=== PATIENT | male | born 1975 | race Caucasian/White ===

== ENCOUNTER 2016-11-01 13:07 | Emergency (ER) | payer MEDICAID, OTHER ==
--- NOTE | 2016-11-01 13:35 | ERNOTE ---
Date of Service: 11/01/16 Time Seen by Provider: 11/01/16 13:23 Stated Complaint: URI Presenting Symptoms:: cough, runny nose, fever Source: patient Exam Limitations: no limitations Allergies/Adverse Reactions: Allergies morphine Allergy (Intermediate, Verified 11/01/16 13:21) Hives prochlorperazine edisylate [From Compazine] Allergy (Intermediate, Verified 09/13 13:21) Hives prochlorperazine maleate [From Compazine] Allergy (Intermediate, Verified 13:21) Hives Home Medications: HOME MEDICATIONS Alprazolam [Xanax] 0.5 mg PO PRN PRN 08/16/13 [Last Taken 11/08/13 23:00] Tadalafil [Cialis] 5 mg PO PRN PRN 08/16/13 [Last Taken Unknown] Doxycycline Monohydrate 100 mg PO BID #20 tablet 11/01/16 [Last Taken Unknown] HYDROcodone/ACETAMINOPHEN [Brixey 5-325] 1 - 2 tab PO Q6H PRN 11/01/16 [Last Taken Unknown] traMADol HCL [Ultram] 100 mg PO QID 11/01/16 [Last Taken Unknown] - History of Present Ilness Narrative: Pt. comes in with four day history of sinus congestion, frontal headache, post nasal gtt, ear pain and fever. Pt. denies any SOB, CP, NVD, recent illness or injury or sick contacts. Pt. does state that he has a cough at night when he lays down. Pt. also states that he has taken advil which alleviates the pain and fever but does not help with the sinus congestion. Review of Systems - Review of Systems Constitutional: Present: fever, chills, fatigue, malaise. Absent: recent illness EYE: Present: eye pain. Absent: eye discharge, blurred vision, double vision, vision changes ENT: Present: ear pain, nose pain, nose congestion, nasal drainage. Absent: ear discharge, sore throat Respiratory: Present: cough. Absent: shortness of breath, wheezing Cardiology: Present: no symptoms reported. Absent: chest pain, palpitations, edema Gastrointestinal/Abdominal: Present: no symptoms reported. Absent: nausea, vomiting, diarrhea Genitourinary: Present: no symptoms reported Musculoskeletal: Present: no symptoms reported. Absent: back pain, joint pain Skin: Present: no symptoms reported. Absent: rash, change in color, change in hair/nails Neurological: Present: headache. Absent: dizziness/light-headedness, numbness, tingling All Other Systems: All systems neg except as marked - Patient's Past Medical History Patient History - Medical: No pertinent hx Patient History - Cardiac/Respiratory: No pertinent hx Patient History - Cancer: No Hx of Cancer Patient History - Surgical Procedures: Appendectomy, T & A, Orthopedic, Urology Patient History - Other: None - Social History Smoking Status: Never smoker Have you smoked in the past 12 months: No Physical Exam - Physical Exam General Appearance: Present: wd/wn, alert, no apparent distress Eye Exam: Normal inspection: bilateral, PERRL: bilateral, EOMI: bilateral Ears, Nose, Throat: Present: abnormal TM (R) - effusion without erythema, abnormal TM (L) - effusion without erythema, nasal congestion, sinus pain/ drainage - poat nasal gtt, red edematous nares, frontal and maxillary pain with palpation, tonsillar exudate - clear. Absent: pharyngeal erythema Neck: Present: normal inspection, nontender. Absent: limited range of motion, lymphadenopathy (R), lymphadenopathy (L) Respiratory: Present: no respiratory distress, normal breath sounds, no accessory muscle use, chest nontender, lungs clear Cardiovascular/Chest: Present: regular rate, rhythm, no murmur, normal peripheral pulses Back Exam: Present: normal inspection Extremity Exam: Present: normal inspection Neurological Exam: Present: alert, oriented, normal mood/affect, no motor/ sensory deficits Skin Exam: Present: warm/dry, pallor ED Progress - Results and Orders Patient's Lab Results:: I have reviewed the patient's lab results. - Vital Signs Patient's Vital Signs:: I have reviewed the patient's vital signs. Vital Signs: Vital Signs 11/01/16 13:18 Temperature 37 C Pulse Rate 106 H Respiratory 16 Rate Blood Pressure 147/67 O2 Sat by Pulse 97 Oximetry - Progress/Reassessment Chief Complaint: Upper Respiratory Symptoms Departure - Departure Clinical Impression: Sinusitis, acute Qualifiers: Sinusitis location: frontal Recurrence: non-recurrent Qualified Code(s): J01.10 - Acute frontal sinusitis, unspecified Disposition: Home self-care Condition: Good Instructions: Sinusitis, Adult, [id number] Additional Instructions: Please follow up with primary provider in 2-3 days. Please use sinus rinse daily Referrals: Michelle Kearney FNP [Primary Care Provider] - Prescriptions: Doxycycline Monohydrate 100 mg PO BID #20 tablet
--- OUTSIDE RECORDS SUMMARY | 2016-11-01 13:41 | XMS REPORT | Continuity of Care Document ---
:1975 Author Organization [facility] Address [place] [address] Care Team Providers Name Role Phone Roderick Edgar Avani Primary Care Provider [phone] Source Comments This disclosure is being made pursuant to the [employer] program and maynot contain all information available regarding this patient.[facility] Active Allergies and Adverse Reactions Allergen Noted Date Severity Reactions Comments Hydromorphone 12/24/2013 Other (See Comments) Morphine 12/24/2013 Other (See Comments) Peanut Oil 12/24/2013 Other (See Comments) Prochlorperazine 12/24/2013 Other (See Comments) Current Medications Be aware that medications may not be up to date as of this document. Alwaysverify current medications with the patient. Prescription Sig. Disp. Refills Start Date End Date Status ALPRAZolam (XANAX) 0.5 MG Take 0.5 mg by Active tablet mouth 2 (two) times daily. hydrocodone-acetaminophen Take 1 tablet by Active (LORCET) 10-650 MG per mouth every 4 tablet (four) hours as needed. ondansetron (ZOFRAN) 4 MG Take 4 mg by mouth Active tablet daily. tadalafil (CIALIS) 20 MG Take 20 mg by mouth Active tablet daily. Testosterone 4 MG/24HR Place onto the Active PT24 skin. 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 Overview: Overview: ABA RAMSEY MD Cervicalgia 12/18/2011 Overview: Overview: KAILYN IZQUIERDO CNP Dysuria 10/04/2011 Overview: Overview: PAMELA NORTH MD Personal history of urinary calculi 10/04/2011 Overview: Overview: PAMELA NORTH MD Social History Tobacco Use Types Packs/Day Years Used Date Never Smoker Last Filed Vital Signs Vital Sign Reading Time Taken Blood Pressure 134/76 11/20/2013 1:10 PM CDT Pulse 18 07/01/2012 1:25 PM [employer] Temperature 36.8 C (98.2 F) 07/01/2012 1:25 PM [employer] ASSIST[employer] Respiratory Rate 20 07/01/2012 1:25 PM [employer]IST[employer] Height 1.664 m (5' 5.5") 11/20/2013 1:10 PM CDT Weight 97.523 kg (215 lb) 11/20/2013 1:10 PM CDT Body Mass Index 35.22 11/20/2013 1:10 PM CDT Oxygen Saturation - - Plan of Care Health Maintenance Due Date Last Done Comments Retired-Pertussis Vaccine Adult 1993 Retired-Tetanus Vaccine Adult 1993 Retired-INFLUENZA VACCINE 12/29/2014 Results from Last 3 Months Not on file Insurance Payer Benefit Plan / Group Subscriber ID Type Phone Address [employer] [id number] [phone] [address] [place] [phone]
--- OUTSIDE RECORDS SUMMARY | 2016-11-01 13:41 | XMS REPORT | Summary of Care ---
:1975 Author Organization [facility] Address [address] [place] [id number]- Care Team Providers Name Role Phone Tiffanie Kearney Primary Care Physician Encounter Date(s): 10/09/15 - 10/09/[address] [id number]- [facility] Final: Calculus of kidney Discharge Diagnosis: Renal calculus or stone Discharge Disposition: 01 Discharged to Home or Self Care Attending Physician: NOAH Rubio Admitting Physician: NOAH Rubio Vital Signs Most recent to oldest [Reference Range]: 1 2 Temperature Temporal Artery [36-38 DegC] 36.6 DegC (10/09/15 12:18 PM) Temperature Temporal Artery [36.0-38.0 DegC] 36.3 DegC (10/09/15 9:53 AM) Heart Rate Monitored [60-100 bpm] 85 bpm 78 bpm (10/09/15 12:18 PM) (10/09/15 9:53 AM) Respiratory Rate [12-20 br/min] 20 br/min 20 br/min (10/09/15 12:18 PM) (10/09/15 9:53 AM) SpO2 97 % 98 % (10/09/15 12:18 PM) (10/09/15 9:53 AM) Blood Pressure [90-130/60-90 mmHg] 124/85mmHg 119/72mmHg (10/09/15 12:18 PM) (10/09/15 9:53 AM) Most recent to oldest [Reference Range]: 1 2 Weight Dosing 99.10 kg1 (10/09/15 9:56 AM) Weight Measured 99.1 kg (10/09/15 9:53 AM) 1Result Comment: This result was because the dosing weight was either not entered or it is>30 days old. 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 Medications Anya-D 24 Hour 180 mg-240 mg oral tablet, extended release 1 tab(s), Oral, Daily, 0 Refill(s) Start Date: 08/13/13 Stop Date: 08/18/13 Status: DiscontinuedALPRAZolam 0.5 mg oral tablet 1 tab(s), Oral, TID, PRN for anxiety, X 30 days, # 90 tab(s), 0 Refill(s), Start Date: 01/11/15 16:14:36 CDT, called to pharmacy (Rx) Start Date: 01/11/15 Stop Date: 02/12/15 Status: CompletedALPRAZolam 0.5 mg oral tablet 1 tab(s), Oral, TID, PRN for anxiety, X 30 days, # 90 tab(s), 0 Refill(s), Start Date: 11/03/14 15:58:41 CDT, called to pharmacy (Rx) Start Date: 11/03/14 Stop Date: 01/11/15 Status: CompletedALPRAZolam 0.5 mg oral tablet 1 tab(s), Oral, TID, PRN for anxiety, X 30 days, # 90 tab(s), 0 Refill(s), Start Date: 02/12/15 10:10:51 CDT, called to pharmacy (Rx) Start Date: 02/12/15 Stop Date: 04/22/15 Status: CompletedALPRAZolam 0.5 mg oral tablet 1 tab(s), Oral, TID, PRN for anxiety, X 30 days, # 90 tab(s), 0 Refill(s), Start Date: 06/12/14 14:24:30 MANAGEMENT SCIENTIST, called to pharmacy (Rx) Start Date: 06/12/14 Stop Date: 07/22/14 Status: CompletedALPRAZolam 0.5 mg oral tablet 1 tab(s), Oral, TID, PRN for anxiety, X 30 days, # 90 tab(s), 0 Refill(s), Start Date: 06/10/15 14:48:13 MANAGEMENT SCIENTIST, called to pharmacy (Rx) Start Date: 06/10/15 Stop Date: 08/11/15 Status: CompletedALPRAZolam 0.5 mg oral tablet 1 tab(s), Oral, TID, PRN for anxiety, X 30 days, # 90 tab(s), 0 Refill(s), Start Date: 09/07/14 15:45:15 CDT Start Date: 09/07/14 Stop Date: 11/03/14 Status: CompletedALPRAZolam 0.5 mg oral tablet 1 tab(s), Oral, TID, PRN for anxiety, # 90 tab(s), 2 Refill(s), Start Date: 13:59:01 CDT Start Date: 08/11/15 Stop Date: 11/09/15 Status: OrderedALPRAZolam 0.5 mg oral tablet 1 tab(s), Oral, TID, PRN for anxiety, 0 Refill(s) Start Date: 08/13/13 Stop Date: 09/26/13 Status: DiscontinuedALPRAZolam 0.5 mg oral tablet 1 tab(s), Oral, TID, PRN for anxiety, X 30 days, # 90 tab(s), 0 Refill(s), Start Date: 04/27/14 14:44:36 MANAGEMENT SCIENTIST, called to pharmacy (Rx) Start Date: 04/27/14 Stop Date: 06/12/14 Status: CompletedALPRAZolam 0.5 mg oral tablet 1 tab(s), Oral, TID, PRN for anxiety, X 30 days, # 90 tab(s), 0 Refill(s), Start Date: 03/11/14 10:03:04 MANAGEMENT SCIENTIST, called to pharmacy (Rx) Start Date: 03/11/14 Stop Date: 04/27/14 Status: CompletedALPRAZolam 0.5 mg oral tablet 1 tab(s), Oral, TID, PRN for anxiety, called to [facility], X 30 days, # 90 tab(s), 0 Refill(s), called to pharmacy (Rx) Special Instructions: called to [facility] Start Date: 09/26/13 Stop Date: 11/25/13 Status: CompletedALPRAZolam 0.5 mg oral tablet 1 tab(s), Oral, TID, PRN for anxiety, X 30 days, # 90 tab(s), 0 Refill(s), Start Date: 09/07/14 15:41:18 CDT Start Date: 09/07/14 Stop Date: 09/07/14 Status: CompletedALPRAZolam 0.5 mg oral tablet 1 tab(s), Oral, TID, PRN for anxiety, # 90 tab(s), 0 Refill(s), Start Date: 9:45:08 CDT, called to pharmacy (Rx) Start Date: 07/22/14 Stop Date: 09/07/14 Status: DiscontinuedALPRAZolam 0.5 mg oral tablet 1 tab(s), Oral, TID, PRN for anxiety, [facility], X 30 days, # 90 tab(s), 0 Refill(s), Start Date: 01/19/14 17:12:27 CDT, called to pharmacy (Rx) Special Instructions: [facility] Start Date: 01/19/14 Stop Date: 03/11/14 Status: CompletedALPRAZolam 0.5 mg oral tablet 1 tab(s), Oral, TID, PRN for anxiety, [facility], X 30 days, # 90 tab(s), 0 Refill(s), called to pharmacy (Rx) Special Instructions: [facility] Start Date: 11/25/13 Stop Date: 01/19/14 Status: CompletedALPRAZolam 0.5 mg oral tablet 1 tab(s), Oral, TID, PRN for anxiety, X 30 days, # 90 tab(s), 0 Refill(s), Start Date: 04/22/15 10:55:28 MANAGEMENT SCIENTIST, called to pharmacy (Rx) Start Date: 04/22/15 Stop Date: 06/10/15 Status: Completedamoxicillin 875 mg oral tablet 1 tab(s), Oral, BID, # 20 tab(s), 0 Refill(s), Start Date: 08/02/15 11:16:00 CDT , Pharmacy: [facility] [id number] Start Date: 08/02/15 Stop Date: 10/09/15 Status: CompletedAndroGel Pump 1.25 g/actuation 7.5gms, Topical, Daily, apply to clean, dry, intact skin wash hands thoroughly after application, 0 Refill(s) Special Instructions: apply to clean, dry, intact skin wash hands thoroughly after application Start Date: 08/13/13 Stop Date: 04/28/14 Status: Discontinuedazithromycin 250 mg oral tablet 1 packet(s), Oral, Per Package Label, as directed on package labeling, # 6 tab(s ), 0 Refill(s), Start Date: 06/22/15 12:26:00 MANAGEMENT SCIENTIST, Pharmacy: [facility] [id number] Special Instructions: as directed on package labeling Start Date: 06/22/15 Stop Date: 08/02/15 Status: Completedazithromycin 250 mg oral tablet 1 packet(s), Oral, Per Package Label, as directed on package labeling, # 6 tab(s ), 0 Refill(s), Start Date: 06/22/15 12:26:00 MANAGEMENT SCIENTIST Special Instructions: as directed on package labeling Start Date: 06/22/15 Stop Date: 06/22/15 Status: DiscontinuedCialis 5 mg oral tablet 1 tab(s), Oral, Daily, PRN for erectile dysfunction, # 6 tab(s), 1 Refill(s), Start Date: 02/12/15 10:13:02 CDT, [facility] [id number] Start Date: 02/12/15 Stop Date: 10/07/15 Status: CompletedCialis 5 mg oral tablet 1 tab(s), Oral, Daily, PRN for erectile dysfunction, # 30 tab(s), 1 Refill(s), Start Date: 09/23/14 10:37:59 CDT, Pharmacy: [facility] [id number] Start Date: 09/23/14 Stop Date: 02/12/15 Status: CompletedCialis 5 mg oral tablet 1 tab(s), Oral, Daily, PRN for erectile dysfunction, 0 Refill(s) Start Date: 08/13/13 Stop Date: 11/14/13 Status: DiscontinuedCialis 5 mg oral tablet 1 tab(s), Oral, Daily, PRN for erectile dysfunction, # 30 tab(s), 11 Refill(s), Start Date: 04/28/14 9:07:42 MANAGEMENT SCIENTIST, Pharmacy: [facility] Start Date: 04/28/14 Stop Date: 09/23/14 Status: CompletedCialis 5 mg oral tablet 1 tab(s), Oral, Daily, PRN for erectile dysfunction, # 6 tab(s), 2 Refill(s), Start Date: 10/07/15 13:49:13 CDT, Pharmacy: [facility] Start Date: 10/07/15 Status: OrderedCialis 5 mg oral tablet 1 tab(s), Oral, Daily, PRN for erectile dysfunction, # 30 tab(s), 0 Refill(s), Pharmacy: [facility] Start Date: 11/14/13 Stop Date: 04/28/14 Status: Discontinuedcyclobenzaprine 5 mg oral tablet 1 tab(s), Oral, TID, # 42 tab(s), 0 Refill(s), Start Date: 12/07/14 16:43:00 CDT , Pharmacy: [facility] [id number] Start Date: 12/07/14 Stop Date: 10/09/15 Status: CompletedDilaudid 2 mg oral tablet 1 tab(s), Oral, q4hr, PRN for pain, # 30 tab(s), 0 Refill(s), Start Date: 12:41:00 CDT Start Date: 10/09/15 Status: OrderedDilaudid 2 mg oral tablet 1 tab(s), Oral, q4hr, PRN for pain, # 180 tab(s), 0 Refill(s), Start Date: 10/08 12:33:00 CDT Start Date: 10/09/15 Status: Orderedhydrochlorothiazide 25 mg, Oral, Daily, 0 Refill(s) Start Date: 08/13/13 Stop Date: 04/28/14 Status: Discontinuedhydrochlorothiazide 25 mg oral tablet 25 mg, Oral, Daily, # 100 tab(s), 3 Refill(s), Start Date: 04/28/14 9:06:00 MANAGEMENT SCIENTIST , Pharmacy: [facility] [id number] Start Date: 04/28/14 Stop Date: 12/07/14 Status: DiscontinuedHYDROcodone-acetaminophen 5 mg-325 mg oral tablet 1 tab(s), Oral, q4hr, PRN for pain, 0 Refill(s), Start Date: 08/02/15 11:05:00 CDT Start Date: 08/02/15 Stop Date: 08/11/15 Status: DiscontinuedHYDROcodone-acetaminophen 5 mg-325 mg oral tablet 1 tab(s), Oral, q4hr, PRN for pain, # 120 tab(s), 0 Refill(s), Start Date: 04/01 14:50:29 MANAGEMENT SCIENTIST Start Date: 04/01/15 Stop Date: 04/11/15 Status: CompletedHYDROcodone-acetaminophen 5 mg-325 mg oral tablet 1 tab(s), Oral, TID, PRN for pain, # 90 tab(s), 0 Refill(s), Start Date: 15:45:36 CDT Start Date: 09/07/14 Stop Date: 09/14/14 Status: CompletedHYDROcodone-acetaminophen 5 mg-325 mg oral tablet 1 tab(s), Oral, q4hr, PRN for pain, # 120 tab(s), 0 Refill(s), Start Date: 12/07 16:43:00 CDT Start Date: 12/07/14 Stop Date: 04/01/15 Status: DiscontinuedHYDROcodone-acetaminophen 5 mg-325 mg oral tablet 1 tab(s), Oral, TID, PRN for pain, # 90 tab(s), 0 Refill(s), Start Date: 15:41:00 CDT Start Date: 09/07/14 Stop Date: 09/07/14 Status: CompletedHYDROcodone-acetaminophen 5 mg-325 mg oral tablet 1 tab(s), Oral, q4hr, PRN for pain, # 120 tab(s), 0 Refill(s), Start Date: 08/10 13:57:00 CDT Start Date: 08/11/15 Stop Date: 08/11/16 Status: Orderedlevofloxacin 500 mg oral tablet 1 tab(s), Oral, Daily, # 7 tab(s), 0 Refill(s), Pharmacy: [facility] [id number] Start Date: 08/13/13 Stop Date: 08/18/13 Status: DiscontinuedLORazepam 1 mg oral tablet See Instructions, take 1 tab by mouth 1 hour prior to procedure DO NOT drive afterward, 0 Refill(s) Special Instructions: take 1 tab by mouth 1 hour prior to procedure DO NOT drive afterward Start Date: 08/13/13 Stop Date: 08/18/13 Status: Discontinuedpantoprazole 40 mg oral enteric coated tablet 1 tab(s), Oral, Daily, # 30 tab(s), 11 Refill(s), Pharmacy: [facility] [id number] Start Date: 08/18/13 Stop Date: 04/28/14 Status: Discontinuedpantoprazole 40 mg oral enteric coated tablet 1 tab(s), Oral, Daily, # 30 tab(s), 11 Refill(s), Start Date: 04/28/14 9:08:33 MANAGEMENT SCIENTIST, Pharmacy: [facility] [id number] Start Date: 04/28/14 Stop Date: 12/07/14 Status: DiscontinuedPhenergan 25 mg oral tablet 1 tab(s), Oral, q6hr interval, PRN for nausea/vomiting, # 60 tab(s), 1 Refill(s) , Start Date: 04/01/15 14:57:00 MANAGEMENT SCIENTIST, Pharmacy: [facility] [id number] Start Date: 04/01/15 Stop Date: 10/09/15 Status: CompletedTessalon Perles 100 mg oral capsule 1 cap(s), Oral, HS, PRN as needed for cough, # 10 cap(s), 0 Refill(s), Start Date: 08/02/15 11:17:00 CDT, Pharmacy: [facility] [id number] Start Date: 08/02/15 Stop Date: 10/09/15 Status: CompletedTessalon Perles 100 mg oral capsule 1 cap(s), Oral, TID, # 42 cap(s), 0 Refill(s), Pharmacy: [facility] [id number] Start Date: 08/18/13 Stop Date: 08/02/15 Status: CompletedTessalon Perles 100 mg oral capsule 1 cap(s), Oral, TID, X 14 days, # 42 cap(s), 0 Refill(s) Start Date: 08/18/13 Stop Date: 08/18/13 Status: CompletedTessalon Perles 100 mg oral capsule 1 cap(s), Oral, TID, # 42 cap(s), 0 Refill(s), Pharmacy: [facility] [id number] Start Date: 08/13/13 Stop Date: 08/18/13 Status: DiscontinuedtraMADol 50 mg oral tablet See Instructions, PRN for pain, 1 or 2 tabs qid prn back pain, # 120 tab(s), 5 Refill(s), Start Date: 07/30/15 16:47:42 CDT, called to pharmacy (Rx) Special Instructions: 1 or 2 tabs qid prn back pain Start Date: 07/30/15 Status: OrderedtraMADol 50 mg oral tablet See Instructions, PRN for pain, 1 or 2 tabs qid prn back pain, # 120 tab(s), 5 Refill(s), Start Date: 12/07/14 16:43:00 CDT Special Instructions: 1 or 2 tabs qid prn back pain Start Date: 12/07/14 Stop Date: 07/30/15 Status: CompletedtraMADol 50 mg oral tablet 1 tab(s), Oral, q12hr, PRN for pain, # 30 tab(s), 0 Refill(s), Pharmacy: [facility] [id number] Start Date: 08/13/13 Stop Date: 04/28/14 Status: DiscontinuedZofran 4 mg oral tablet 1 tab(s), Oral, As Indicated, PRN nausea/vomiting, # 10 tab(s), 0 Refill(s), Start Date: 10/09/15 12:33:00 CDT Start Date: 10/09/15 Status: OrderedZofran ODT 4 mg oral tablet, disintegrating 1 tab(s), Oral, ONETIME, allow tablet to dissolve on tongue as needed for nausea and vomiting, # 10 tab(s), 0 Refill(s) Special Instructions: allow tablet to dissolve on tongue as needed for nausea and vomiting Start Date: 08/13/13 Stop Date: 08/18/13 Status: Discontinued Results Patient Viewable Results Most recent to oldest [Reference Range]: 1 WBC [4.8-10.8 thou/mm3] 4.4 thou/mm3 *LOW* (10/09/15 10:56 AM) RBC [4.60-6.00 Mil/mm3] 4.84 Mil/mm3 (10/09/15 10:56 AM) Hgb [14.0-18.0 g/dL] 15.9 g/dL (10/09/15 10:56 AM) Hct [42.0-52.0 %] 44.2 % (10/09/15 10:56 AM) MCV [80.0-94.0 fL] 91.3 fL (10/09/15 10:56 AM) MCH [25.0-38.0 pg/cell] 32.9 pg/cell (10/09/15 10:56 AM) MCHC [31.0-37.0 g/dL] 36.0 g/dL (10/09/15 10:56 AM) RDW [1.0-48.0 fL] 41.5 fL (10/09/15 10:56 AM) Platelet [130-400 thou/mm3] 143 thou/mm3 (10/09/15 10:56 AM) Neutrophils % Auto [50.0-75.0 %] 57.9 % (10/09/15 10:56 AM) Immature Granulocyte Auto [0.1-2.0 %] 0.5 % (10/09/15 10:56 AM) Lymphocytes % Auto [15.0-41.0 %] 30.8 % (10/09/15 10:56 AM) Monocytes % Auto [2.0-10.0 %] 8.2 % (10/09/15 10:56 AM) Eosinophils % Auto [0.0-6.0 %] 2.1 % (10/09/15 10:56 AM) Basophil % Auto [0.0-1.0 %] 0.5 % (10/09/15 10:56 AM) Neutrophils Absolute [1.5-5.9 thou/mm3] 2.5 thou/mm3 (10/09/15 10:56 AM) Immature Gran Absolute [0.01-0.03 thou/mm3] 0.02 thou/mm3 (10/09/15 10:56 AM) Lymphocytes Absolute [1.5-4.0 thou/mm3] 1.4 thou/mm3 *LOW* (10/09/15 10:56 AM) Monocytes Absolute [0.0-0.9 thou/mm3] 0.4 thou/mm3 (10/09/15 10:56 AM) Eosinophil Absolute [0.0-0.7 thou/mm3] 0.1 thou/mm3 (10/09/15 10:56 AM) Basophil Absolute [0.0-0.2 thou/mm3] 0.0 thou/mm3 (10/09/15 10:56 AM) Sodium Lvl [135-144 mEq/L] 141 mEq/L (10/09/15 10:56 AM) Potassium Lvl [3.3-4.8 mEq/L] 4.0 mEq/L (10/09/15 10:56 AM) Chloride Lvl [98-107 mEq/L] 106 mEq/L (10/09/15 10:56 AM) Bicarbonate Lvl [22-30 mmol/L] 25 mmol/L (10/09/15 10:56 AM) Anion Gap [10.0-20.0] 14.0 (10/09/15 10:56 AM) Glucose Lvl [70-108 mg/dL] 94 mg/dL (10/09/15 10:56 AM) BUN [7-21 mg/dL] 15 mg/dL (10/09/15 10:56 AM) Creatinine Lvl [0.50-1.20 mg/dL] 1.19 mg/dL (10/09/15 10:56 AM) BUN/Creat Ratio 12.6 *NA* (10/09/15 10:56 AM) eGFR AA [>=60] >60 (10/09/15 10:56 AM) eGFR RIKI [>=60] >60 (10/09/15 10:56 AM) Calcium Lvl [8.6-10.2 mg/dL] 8.7 mg/dL (10/09/15 10:56 AM) Estimated Creatinine Clearance 89.90 mL/min (10/09/15 11:18 AM) UA Color [Yellow] Yellow (10/09/15 AM) Urine Clarity [Clear] Clear (10/09/15 AM) Specific [place] [1.001-1.020] 1.026 *HI* (10/09/15 AM) Urine pH [5.0-7.0] 5.5 (10/09/15 AM) Ketones [Negative] Negative (10/09/15 AM) Bilirubin [Negative] Negative (10/09/15 AM) Urine Protein [Negative] Trace *ABN* (10/09/15 AM) Glucose [Negative] Negative (10/09/15 AM) Urine HGB [Negative] Trace *ABN* (10/09/15 AM) Urobilinogen [< 2.0 mg/dL] <2.0 *NA* (10/09/15 AM) Nitrite [Negative] Negative (10/09/15 AM) Leuk Esterase [Negative] 3+ *ABN* (10/09/15 AM) Urine WBC [0-5] 21-50 *ABN* (10/09/15 AM) Urine RBC [0-2] 0-2 (10/09/15:17 AM) Squamous Epi [0-5] None Seen (10/09/15 AM) Bacteria [None Seen] Trace *ABN* (10/09/15 AM) Mucus [None Seen] 2+ *NA* (10/09/15 AM) UA Amorphous Sediment [None Seen] Trace *ABN* (10/09/15 11:17 AM) Microbiology Reports TEST:Urine Culture STATUS:Auth (Verified) BODY SITE: SOURCE:Urine, Clean Catch COLLECTED DATE/TIME:10/09/15 10:34 AMFINAL REPORT10-20,000 cfu/ml Mixed Gram positive organisms. Multiple colony types consistent with contaminated specimen. Please resubmit if clinically indicated. Immunizations No data available for this section Procedures Procedure Date Related Diagnosis Body Site Colonoscopy 01/2015 Appendectomy Hernia repair Tonsillectomy Social History No data available for this section Assessment and Plan No data available for this section
--- OUTSIDE RECORDS SUMMARY | 2016-11-01 13:42 | XMS REPORT | Summary of Care ---
:1975 Author Organization [facility] Address [address] [place] [id number] Care Team Providers Name Role Phone Tiffanie Kearney Primary Care Physician Encounter Date(s): 05/26/16 - 05/26/[address] [address] Discharge Disposition: 01 Discharged to Home or Self Care Referring Physician: JACINTA Nazario Vital Signs No data available for this section Problem List Condition Effective Dates Status Health [...] tab(s), 0 Refill(s), Start Date: 06/12/14 14:24:30 MEDICAL TECHNICIAN ASSISTANT, called to pharmacy (Rx) Start Date: 06/12/14 Stop Date: 07/22/14 Status: CompletedALPRAZolam 0.5 mg oral tablet 1 tab(s), Oral, TID, PRN for anxiety, X 30 days, # 90 tab(s), 2 Refill(s), Start Date: 12/17/15 11:55:17 CDT, called to pharmacy (Rx) Start Date: 12/17/15 Stop Date: 01/18/16 Status: CompletedALPRAZolam 0.5 mg oral tablet 1 tab(s), Oral, TID, PRN for anxiety, X 30 days, # 90 tab(s), 0 Refill(s), Start Date: 06/10/15 14:48:13 MEDICAL TECHNICIAN ASSISTANT, called to pharmacy (Rx) Start Date: 06/10/15 Stop Date: 08/11/15 Status: CompletedALPRAZolam 0.5 mg oral tablet 1 tab(s), Oral, TID, PRN for anxiety, X 30 days, # 90 tab(s), 0 Refill(s), Start Date: 03/06/16 15:37:05 MEDICAL TECHNICIAN ASSISTANT, called to pharmacy (Rx) Start Date: 03/06/16 Stop Date: 04/11/16 Status: CompletedALPRAZolam 0.5 mg oral tablet 1 tab(s), Oral, TID, PRN for anxiety, X 30 days, # 90 tab(s), 0 Refill(s), Start Date: 09/07/14 15:45:15 CDT Start Date: 09/07/14 Stop Date: 11/03/14 Status: CompletedALPRAZolam 0.5 mg oral tablet 1 tab(s), Oral, TID, PRN for anxiety, X 30 days, # 90 tab(s), 2 Refill(s), Start Date: 08/11/15 13:59:01 CDT Start Date: 08/11/15 Stop Date: 12/17/15 Status: CompletedALPRAZolam 0.5 mg oral tablet 1 tab(s), Oral, TID, PRN for anxiety, 0 Refill(s) Start Date: 08/13/13 Stop Date: 09/26/13 Status: DiscontinuedALPRAZolam 0.5 mg oral tablet 1 tab(s), Oral, TID, PRN for anxiety, X 30 days, # 90 tab(s), 0 Refill(s), Start Date: 04/27/14 14:44:36 MEDICAL TECHNICIAN ASSISTANT, called to pharmacy (Rx) Start Date: 04/27/14 Stop Date: 06/12/14 Status: CompletedALPRAZolam 0.5 mg oral tablet 1 tab(s), Oral, TID, PRN for anxiety, X 30 days, # 90 tab(s), 0 Refill(s), Start Date: 03/11/14 10:03:04 MEDICAL TECHNICIAN ASSISTANT, called to pharmacy (Rx) Start Date: 03/11/14 Stop Date: 04/27/14 Status: CompletedALPRAZolam 0.5 mg oral tablet 1 tab(s), Oral, TID, PRN for anxiety, called to [facility], X 30 days, # 90 tab(s), 0 Refill(s), called to pharmacy (Rx) Start Date: 09/26/13 Stop Date: 11/25/13 Status: [...] 01/19/14 17:12:27 CDT, called to pharmacy (Rx) Start Date: 01/19/14 Stop Date: 03/11/14 Status: CompletedALPRAZolam 0.5 mg oral tablet 1 tab(s), Oral, TID, PRN for anxiety, # 90 tab(s), 0 Refill(s), Start Date: 13:56:51 MEDICAL TECHNICIAN ASSISTANT, called to pharmacy (Rx) Start Date: 04/11/16 Stop Date: 05/11/16 Status: OrderedALPRAZolam 0.5 mg oral tablet 1 tab(s), Oral, TID, PRN for anxiety, X 30 days, # 90 tab(s), 0 Refill(s), Start Date: 01/18/16 15:29:49 CDT, called to pharmacy (Rx) Start Date: 01/18/16 Stop Date: 03/06/16 Status: CompletedALPRAZolam 0.5 mg oral tablet 1 tab(s), Oral, TID, PRN for anxiety, [facility], X 30 days, # 90 tab(s), 0 Refill(s), called to pharmacy (Rx) Start Date: 11/25/13 Stop Date: 01/19/14 Status: CompletedALPRAZolam 0.5 mg oral tablet 1 tab(s), Oral, TID, PRN for anxiety, X 30 days, # 90 tab(s), 0 Refill(s), Start Date: 04/22/15 10:55:28 MEDICAL TECHNICIAN ASSISTANT, called to pharmacy (Rx) Start Date: 04/22/15 Stop Date: 2/11/16 Status: Completedamoxicillin 875 mg oral tablet 1 tab(s), Oral, BID, # 20 tab(s), 0 Refill(s), Start Date: 08/02/15 11:16:00 CDT , Pharmacy: [facility] [id number] Start Date: 08/02/15 Stop Date: 10/09/15 Status: CompletedAndroGel Pump 1.25 g/actuation 7.5gms, Topical, Daily, apply to clean, dry, intact skin wash hands thoroughly after application, 0 Refill(s) Start Date: 08/13/13 Stop Date: 04/28/14 Status: Discontinuedazithromycin 250 mg oral tablet 1 packet(s), Oral, Per Package Label, as directed on package labeling, # 6 tab(s ), 0 Refill(s), Start Date: 06/22/15 12:26:00 MEDICAL TECHNICIAN ASSISTANT, Pharmacy: [facility] [id number] Start Date: 06/22/15 Stop Date: 08/02/15 Status: Completedazithromycin 250 mg oral tablet 1 packet(s), Oral, Per Package Label, as directed on package labeling, # 6 tab(s ), 0 Refill(s), Start Date: 06/22/15 12:26:00 MEDICAL TECHNICIAN ASSISTANT Start Date: 06/22/15 Stop Date: 06/22/15 Status: Discontinuedazithromycin 250 mg oral tablet See Instructions, 2 tabs daily x 5 days, # 12 tab(s), 0 Refill(s), Start Date: 05/19/16 10:54:00 MEDICAL TECHNICIAN ASSISTANT, Pharmacy: [facility] [id number] Start Date: 05/19/16 Stop Date: 05/29/16 Status: OrderedAzithromycin 5 Day Dose Pack 250 mg oral tablet 1 packet(s), Oral, Per Package Label, as directed on package labeling, # 6 tab(s ), 0 Refill(s), Start Date: 05/19/16 10:36:00 MEDICAL TECHNICIAN ASSISTANT, Pharmacy: [facility] [id number] Start Date: 05/19/16 Stop Date: 05/19/16 Status: DiscontinuedAzithromycin 5 Day Dose Pack 250 mg oral tablet 1 packet(s), Oral, Per Package Label, as directed on package labeling, X 5 days , # 6 tab(s), 0 Refill(s), Start Date: 12/01/15 15:38:00 CDT, Pharmacy: [facility] [id number] Start Date: 12/01/15 Stop Date: 12/06/15 Status: CompletedCialis 5 mg oral tablet 1 tab(s), Oral, Daily, PRN for erectile dysfunction, # 6 tab(s), 1 Refill(s), Start Date: 02/12/15 10:13:02 CDT, Pharmacy: [facility] [id number] Start Date: 02/12/15 Stop Date: 10/07/15 Status: CompletedCialis 5 mg oral tablet 1 tab(s), Oral, Daily, PRN for erectile dysfunction, # 30 tab(s), 1 Refill(s), Start Date: 09/23/14 10:37:59 CDT, Pharmacy: [id number] Start Date: 09/23/14 Stop Date: 02/12/15 Status: CompletedCialis 5 mg oral tablet 1 tab(s), Oral, Daily, PRN for erectile dysfunction, 0 Refill(s) Start Date: 08/13/13 Stop Date: 11/14/13 Status: DiscontinuedCialis 5 mg oral tablet 1 tab(s), Oral, Daily, PRN for erectile dysfunction, # 30 tab(s), 11 Refill(s), Start Date: 04/28/14 9:07:42 MEDICAL TECHNICIAN ASSISTANT, Pharmacy: [facility] Start Date: 04/28/14 Stop Date: 09/23/14 Status: CompletedCialis 5 mg oral tablet 1 tab(s), Oral, Daily, PRN for erectile dysfunction, # 6 tab(s), 2 Refill(s), Start Date: 10/07/15 13:49:13 CDT, Pharmacy: [facility] Start Date: 10/07/15 Status: OrderedCialis 5 mg oral tablet 1 tab(s), Oral, Daily, PRN for erectile dysfunction, # 30 tab(s), 0 Refill(s), Pharmacy: [facility] Start Date: 11/14/13 Stop Date: 04/28/14 Status: Discontinuedcyclobenzaprine 5 mg oral tablet 1 tab(s), Oral, TID, # 42 tab(s), 0 Refill(s), Start Date: 12/07/14 16:43:00 CDT , Pharmacy: [facility] [id number] Start Date: 12/07/14 Stop Date: 10/09/15 Status: CompletedDilaudid 2 mg oral tablet 1 tab(s), Oral, q4hr, PRN for pain, # 30 tab(s), 0 Refill(s), Start Date: 12:41:00 CDT Start Date: 10/09/15 Stop Date: 11/18/15 Status: DiscontinuedDilaudid 2 mg oral tablet 1 tab(s), Oral, q4hr, PRN for pain, # 180 tab(s), 0 Refill(s), Start Date: 10/08 12:33:00 CDT Start Date: 10/09/15 Stop Date: 11/18/15 Status: Discontinuedhydrochlorothiazide 25 mg, Oral, Daily, 0 Refill(s) Start Date: 08/13/13 Stop Date: 04/28/14 Status: Discontinuedhydrochlorothiazide 25 mg oral tablet 25 mg, Oral, Daily, # 100 tab(s), 3 Refill(s), Start Date: 04/28/14 9:06:00 MEDICAL TECHNICIAN ASSISTANT , Pharmacy: [id number] Start Date: 04/28/14 Stop Date: 12/07/14 Status: DiscontinuedHYDROcodone-acetaminophen 5 mg-325 mg oral tablet 1 tab(s), Oral, q4hr, PRN for pain, 0 Refill(s), Start Date: 08/02/15 11:05:00 CDT Start Date: 08/02/15 Stop Date: 08/11/15 Status: DiscontinuedHYDROcodone-acetaminophen 5 mg-325 mg oral tablet 1 tab(s), Oral, q4hr, PRN for pain, # 120 tab(s), 0 Refill(s), Start Date: 04/01 14:50:29 MEDICAL TECHNICIAN ASSISTANT Start Date: 04/01/15 Stop Date: 04/11/15 Status: [...] 1 tab(s), Oral, q4hr, PRN for pain, X 30 days, # 120 tab(s), 0 Refill(s), Start Date: 01/13/16 15:38:53 CDT Start Date: 01/13/16 Stop Date: 04/11/16 Status: CompletedHYDROcodone-acetaminophen 5 mg-325 mg oral tablet 1 tab(s), Oral, q4hr, PRN for pain, # 120 tab(s), 0 Refill(s), Start Date: 11/17 17:07:51 CDT Start Date: 11/18/15 Stop Date: 01/13/16 Status: CompletedHYDROcodone-acetaminophen 5 mg-325 mg oral tablet 1 tab(s), Oral, q4hr, PRN for pain, # 120 tab(s), 0 Refill(s), Start Date: 08/10 13:57:00 CDT Start Date: 08/11/15 Stop Date: 11/18/15 Status: DiscontinuedHYDROcodone-acetaminophen 5mg-325mg oral tablet 1 tab(s), Oral, q4hr, PRN for pain, # 120 tab(s), 0 Refill(s), Start Date: 04/11 13:58:43 MEDICAL TECHNICIAN ASSISTANT Start Date: 04/11/16 Stop Date: 05/11/16 Status: Orderedlevofloxacin 500 mg oral tablet 1 tab(s), Oral, Daily, # 7 tab(s), 0 Refill(s), Pharmacy: [facility] [id number] Start Date: 08/13/13 Stop Date: 08/18/13 Status: DiscontinuedLORazepam 1 mg oral tablet See Instructions, take 1 tab by mouth 1 hour prior to procedure DO NOT drive afterward, 0 Refill(s) Start Date: 08/13/13 Stop Date: 08/18/13 Status: DiscontinuedMethylPREDNISolone Dose Pack 4 mg oral tablet 1 packet(s), Oral, ONETIME, as directed on package labeling, # 21 tab(s), 0 Refill(s), Start Date: 05/19/16 10:43:00 MEDICAL TECHNICIAN ASSISTANT, Pharmacy: [facility] [id number] Start Date: 05/19/16 Status: Orderedpantoprazole 40 mg oral enteric coated tablet 1 tab(s), Oral, Daily, # 30 tab(s), 11 Refill(s), Pharmacy: [facility] [id number] Start Date: 08/18/13 Stop Date: 04/28/14 Status: Discontinuedpantoprazole 40 mg oral enteric coated tablet 1 tab(s), Oral, Daily, # 30 tab(s), 11 Refill(s), Start Date: 04/28/14 9:08:33 MEDICAL TECHNICIAN ASSISTANT, Pharmacy: [facility] [id number] Start Date: 04/28/14 Stop Date: 12/07/14 Status: DiscontinuedPhenergan 25 mg oral tablet 1 tab(s), Oral, q6hr interval, PRN for nausea/vomiting, # 60 tab(s), 1 Refill(s) , Start Date: 04/01/15 14:57:00 MEDICAL TECHNICIAN ASSISTANT, Pharmacy: [facility] [id number] Start Date: 04/01/15 Stop Date: 10/09/15 Status: CompletedPro-Red AC oral syrup 10 mL, Oral, q4hr, PRN for cough and congestion, # 240 mL, 2 Refill(s), Start Date: 05/19/16 10:44:00 MEDICAL TECHNICIAN ASSISTANT, called to pharmacy (Rx) Start Date: 05/19/16 Stop Date: 05/19/16 Status: DiscontinuedPro-Red AC oral syrup 10 mL, Oral, q4hr, PRN for cough and congestion, X 7 days, # 240 mL, 2 Refill(s) , Start Date: 05/19/16 11:43:18 MEDICAL TECHNICIAN ASSISTANT, called to pharmacy (Rx) Start Date: 05/19/16 Stop Date: 06/09/16 Status: OrderedTessalon Perles 100 mg oral capsule 1 cap(s), Oral, HS, PRN as needed for cough, # 10 cap(s), 0 Refill(s), Start Date: 08/02/15 11:17:00 CDT, Pharmacy: [facility] [id number] Start Date: 08/02/15 Stop Date: 10/09/15 Status: CompletedTessalon Perles 100 mg oral capsule 1 cap(s), Oral, TID, # 42 cap(s), 0 Refill(s), Pharmacy: [facility] [id number] Start Date: 08/18/13 Stop Date: 08/02/15 Status: CompletedTessalon Perles 100 mg oral capsule 1 cap(s), Oral, TID, X 14 days, # 42 cap(s), 0 Refill(s) Start Date: 08/18/13 Stop Date: 08/18/13 Status: CompletedTessalon Perles 100 mg oral capsule 1 cap(s), Oral, TID, # 42 cap(s), 0 Refill(s), Pharmacy: [facility] [id number] Start Date: 08/13/13 Stop Date: 08/18/13 Status: DiscontinuedtraMADol 50 mg oral tablet See Instructions, PRN for pain, 1 or 2 tabs qid prn back pain, # 120 tab(s), 5 Refill(s), Start Date: 07/30/15 16:47:42 CDT, called to pharmacy (Rx) Start Date: 07/30/15 Stop Date: 11/18/15 Status: DiscontinuedtraMADol 50 mg oral tablet See Instructions, PRN for pain, 1 or 2 tabs qid prn back pain, # 120 tab(s), 5 Refill(s), Start Date: 12/07/14 16:43:00 CDT Start Date: 12/07/14 Stop Date: 07/30/15 Status: CompletedtraMADol 50 mg oral tablet 1 tab(s), Oral, q12hr, PRN for pain, # 30 tab(s), 0 Refill(s), Pharmacy: [facility] [id number] Start Date: 08/13/13 Stop Date: 04/28/14 Status: DiscontinuedtraMADol 50 mg oral tablet See Instructions, PRN for pain, 1 or 2 tabs qid prn back pain, # 120 tab(s), 5 Refill(s), Start Date: 11/18/15 17:07:44 CDT Start Date: 11/18/15 Status: OrderedZofran 4 mg oral tablet 1 tab(s), Oral, As Indicated, PRN nausea/vomiting, # 10 tab(s), 0 Refill(s), Start Date: 10/09/15 12:33:00 CDT Start Date: 10/09/15 Stop Date: 05/19/16 Status: DiscontinuedZofran ODT 4 mg oral tablet, disintegrating 1 tab(s), Oral, ONETIME, allow tablet to dissolve on tongue as needed for nausea and vomiting, # 10 tab(s), 0 Refill(s) Start Date: 08/13/13 Stop Date: 08/18/13 Status: Discontinued Results No data available for this section Immunizations No data available for this section Procedures Procedure Date Related Diagnosis Body Site Colonoscopy 01/2015 Appendectomy Hernia repair Tonsillectomy Social History No data available for this section Assessment and Plan No data available for this section
--- OUTSIDE RECORDS SUMMARY | 2016-11-01 13:43 | XMS REPORT | Summary of Care ---
:1975 Author Organization [facility] Address [address] [place] [id number] Care Team Providers Name Role Phone Tiffanie Kearney Primary Care Physician Encounter Date(s): 05/19/16 - 05/19/[address] [id number] Discharge Diagnosis: Fatigue Discharge Diagnosis: Testosterone deficiency Discharge Diagnosis: Acute sinusitis Discharge Disposition: Discharged to Home or Self Care Attending Physician: JACINTA Nazario Referring Physician: JACINTA Nazario Vital Signs Most recent to oldest [Reference Range]: 1 Temperature Tympanic [36.6-38.1 DegC] 36.1 DegC *LOW* (05/19/16 10:01 AM) Temperature C to F 97 (05/19/16 10:01 AM) Peripheral Pulse Rate [60-100 bpm] 76 bpm (05/19/16 10:01 AM) SpO2 97 % (05/19/16 10:01 AM) SpO2 Location Right hand (05/19/16 10:01 AM) Blood Pressure [90-130/60-90 mmHg] 114/70mmHg (05/19/16 10:01 AM) Mean Arterial Pressure, Cuff 85 mmHg (05/19/16 10:01 AM) Height/Length Measured 166 cm (05/19/16 10:01 AM) Weight Dosing 106.30 kg1 (05/19/16 10:03 AM) Weight Measured 106.3 kg (05/19/16 10:01 AM) BSA Measured 2.12 m2 (05/19/16 10:01 AM) Body Mass Index Measured 38.58 kg/m2 (05/19/16 10:01 AM) 1Result Comment: This result was because the dosing weight was either not entered or it is>30 days old. This result is based off: Weight Measured May 19, 2016 10:01:00 LENS MAKER by Stacie [employer] CMA Problem List Condition Effective Dates Status Health [...] tab(s), 0 Refill(s), Start Date: 06/12/14 14:24:30 LENS MAKER, called to pharmacy (Rx) Start Date: 06/12/14 [...] tab(s), 0 Refill(s), Start Date: 06/10/15 14:48:13 LENS MAKER, called to pharmacy (Rx) Start Date: 06/10/15 Stop Date: 08/11/15 Status: CompletedALPRAZolam 0.5 mg oral tablet 1 tab(s), Oral, TID, PRN for anxiety, X 30 days, # 90 tab(s), 0 Refill(s), Start Date: 03/06/16 15:37:05 LENS MAKER, called to pharmacy (Rx) Start Date: 03/06/16 [...] tab(s), 0 Refill(s), Start Date: 04/27/14 14:44:36 LENS MAKER, called to pharmacy (Rx) Start Date: 04/27/14 Stop Date: 06/12/14 Status: CompletedALPRAZolam 0.5 mg oral tablet 1 tab(s), Oral, TID, PRN for anxiety, X 30 days, # 90 tab(s), 0 Refill(s), Start Date: 03/11/14 10:03:04 LENS MAKER, called to pharmacy (Rx) Start Date: 03/11/14 [...] 90 tab(s), 0 Refill(s), Start Date: 13:56:51 LENS MAKER, called to pharmacy (Rx) Start Date: 04/11/16 Stop Date: 05/11/16 Status: OrderedALPRAZolam 0.5 mg oral tablet 1 tab(s), Oral, TID, PRN for anxiety, X 30 days, # 90 tab(s), 0 Refill(s), Start Date: 01/18/16 15:29:49 CDT, called to pharmacy (Rx) Start Date: 01/18/16 Stop Date: 03/06/16 Status: CompletedALPRAZolam 0.5 mg oral tablet 1 tab(s), Oral, TID, [facility], # 90 tab(s), 0 Refill(s), called to pharmacy (Rx) Start Date: 11/25/13 Stop Date: 01/19/14 Status: CompletedALPRAZolam 0.5 mg oral tablet 1 tab(s), Oral, TID, PRN for anxiety, X 30 days, # 90 tab(s), 0 Refill(s), Start Date: 04/22/15 10:55:28 LENS MAKER, called to pharmacy (Rx) Start Date: 04/22/15 Stop Date: 06/10/15 Status: Completedamoxicillin 875 mg oral tablet 1 tab(s), Oral, BID, # 20 tab(s), 0 Refill(s), Start Date: 08/02/15 11:16:00 CDT , Pharmacy: [facility] [id number] Start Date: 08/02/15 Stop Date: 10/09/15 Status: CompletedAndroGel Pump 1.25 g/actuation 7.5gms, Topical, Daily, apply to clean, dry, intact skin wash hands thoroughly after application, 0 Refill(s) Start Date: 08/13/13 Stop Date: 04/28/14 Status: Discontinuedazithromycin 250 mg oral tablet 1 packet(s), Oral, Per Package Label, as directed on package labeling, # 6 tab(s ), 0 Refill(s), Start Date: 06/22/15 12:26:00 LENS MAKER, Pharmacy: [facility] [id number] Start Date: 06/22/15 Stop Date: 08/02/15 Status: Completedazithromycin 250 mg oral tablet 1 packet(s), Oral, Per Package Label, as directed on package labeling, # 6 tab(s ), 0 Refill(s), Start Date: 06/22/15 12:26:00 LENS MAKER Start Date: 06/22/15 Stop Date: 06/22/15 Status: Discontinuedazithromycin 250 mg oral tablet See Instructions, 2 tabs daily x 5 days, # 12 tab(s), 0 Refill(s), Start Date: 05/19/16 10:54:00 LENS MAKER, Pharmacy: [facility] [id number] Start Date: 05/19/16 Stop Date: 05/29/16 Status: OrderedAzithromycin 5 Day Dose Pack 250 mg oral tablet 1 packet(s), Oral, Per Package Label, as directed on package labeling, # 6 tab(s ), 0 Refill(s), Start Date: 05/19/16 10:36:00 LENS MAKER, Pharmacy: [facility] [id number] Start Date: 05/19/16 Stop Date: 05/19/16 Status: DiscontinuedAzithromycin 5 Day Dose Pack 250 mg oral tablet 1 packet(s), Oral, Per Package Label, as directed on package labeling, X 5 days , # 6 tab(s), 0 Refill(s), Start Date: 12/01/15 15:38:00 CDT, Pharmacy: [facility] [id number] Start Date: 12/01/15 Stop Date: 12/06/15 Status: CompletedCialis 5 mg oral tablet 1 tab(s), Oral, Daily, PRN for erectile dysfunction, # 6 tab(s), 1 Refill(s), Start Date: 02/12/15 10:13:02 CDT, Pharmacy: [facility] [id number] Start Date: 02/12/15 Stop Date: 10/07/15 Status: CompletedCialis 5 mg oral tablet 1 tab(s), Oral, Daily, PRN for erectile dysfunction, # 30 tab(s), 1 Refill(s), Start Date: 09/23/14 10:37:59 CDT, Pharmacy: [facility] [id number] Start Date: 09/23/14 Stop Date: 02/12/15 Status: CompletedCialis 5 mg oral tablet 1 tab(s), Oral, Daily, PRN for erectile dysfunction, 0 Refill(s) Start Date: 08/13/13 Stop Date: 11/14/13 Status: DiscontinuedCialis 5 mg oral tablet 1 tab(s), Oral, Daily, PRN for erectile dysfunction, # 30 tab(s), 11 Refill(s), Start Date: 04/28/14 9:07:42 LENS MAKER, Pharmacy: [facility] [id number] Start Date: 04/28/14 Stop Date: 09/23/14 Status: CompletedCialis 5 mg oral tablet 1 tab(s), Oral, Daily, PRN for erectile dysfunction, # 6 tab(s), 2 Refill(s), Start Date: 10/07/15 13:49:13 CDT, Pharmacy: [facility] Start Date: 10/07/15 Status: OrderedCialis 5 mg oral tablet 1 tab(s), Oral, Daily, PRN for erectile dysfunction, # 30 tab(s), 0 Refill(s), Pharmacy: [facility] Start Date: 11/14/13 Stop Date: 04/28/14 Status: Discontinuedcyclobenzaprine 5 mg oral tablet 1 tab(s), Oral, TID, # 42 tab(s), 0 Refill(s), Start Date: 12/07/14 16:43:00 CDT , Pharmacy: [facility] [id number] Start Date: 12/07/14 Stop Date: 10/09/15 Status: [...] tab(s), 3 Refill(s), Start Date: 04/28/14 9:06:00 LENS MAKER , Pharmacy: [facility] [id number] Start Date: 04/28/14 Stop Date: 12/07/14 Status: DiscontinuedHYDROcodone-acetaminophen 5 mg-325 mg oral tablet 1 tab(s), Oral, q4hr, PRN for pain, 0 Refill(s), Start Date: 08/02/15 11:05:00 CDT Start Date: 08/02/15 Stop Date: 08/11/15 Status: DiscontinuedHYDROcodone-acetaminophen 5 mg-325 mg oral tablet 1 tab(s), Oral, q4hr, PRN for pain, # 120 tab(s), 0 Refill(s), Start Date: 04/01 14:50:29 LENS MAKER Start Date: 04/01/15 Stop Date: 04/11/15 Status: [...] Refill(s), Start Date: 15:41:00 CDT Start Date: 5/11/15 Stop Date: 09/07/14 Status: CompletedHYDROcodone-acetaminophen 5 mg-325 [...] tab(s), 0 Refill(s), Start Date: 04/11 13:58:43 LENS MAKER Start Date: 04/11/16 Stop Date: 05/11/16 Status: Orderedlevofloxacin 500 mg oral tablet 1 tab(s), Oral, Daily, # 7 tab(s), 0 Refill(s), Pharmacy: [facility] [id number] Start Date: 08/13/13 Stop Date: 08/18/13 Status: DiscontinuedLORazepam 1 mg oral tablet See Instructions, take 1 tab by mouth 1 hour prior to procedure DO NOT drive afterward, 0 Refill(s) Start Date: 08/13/13 Stop Date: 08/18/13 Status: DiscontinuedMethylPREDNISolone Dose Pack 4 mg oral tablet 1 packet(s), Oral, ONETIME, as directed on package labeling, # 21 tab(s), 0 Refill(s), Start Date: 05/19/16 10:43:00 LENS MAKER, Pharmacy: [facility] [id number] Start Date: 05/19/16 Status: Orderedpantoprazole 40 mg oral enteric coated tablet 1 tab(s), Oral, Daily, # 30 tab(s), 11 Refill(s), Pharmacy: [facility] [id number] Start Date: 08/18/13 Stop Date: 04/28/14 Status: Discontinuedpantoprazole 40 mg oral enteric coated tablet 1 tab(s), Oral, Daily, # 30 tab(s), 11 Refill(s), Start Date: 04/28/14 9:08:33 LENS MAKER, Pharmacy: [facility] [id number] Start Date: 04/28/14 Stop Date: 12/07/14 Status: DiscontinuedPhenergan 25 mg oral tablet 1 tab(s), Oral, q6hr interval, PRN for nausea/vomiting, # 60 tab(s), 1 Refill(s) , Start Date: 04/01/15 14:57:00 LENS MAKER, Pharmacy: [facility] [id number] Start Date: 04/01/15 Stop Date: 10/09/15 Status: CompletedPro-Red AC oral syrup 10 mL, Oral, q4hr, PRN for cough and congestion, # 240 mL, 2 Refill(s), Start Date: 05/19/16 10:44:00 LENS MAKER, called to pharmacy (Rx) Start Date: 05/19/16 Stop Date: 05/19/16 Status: DiscontinuedPro-Red AC oral syrup 10 mL, Oral, q4hr, PRN for cough and congestion, X 7 days, # 240 mL, 2 Refill(s) , Start Date: 05/19/16 11:43:18 LENS MAKER, called to pharmacy (Rx) Start Date: 05/19/16 Stop Date: 06/09/16 Status: OrderedTessalon Perles 100 mg oral capsule 1 cap(s), Oral, HS, PRN as needed for cough, # 10 cap(s), 0 Refill(s), Start Date: 08/02/15 11:17:00 CDT, Pharmacy: [facility] [id number] Start Date: 08/02/15 Stop Date: 10/09/15 Status: CompletedTessalon Perles 100 mg oral capsule 1 cap(s), Oral, TID, # 42 cap(s), 0 Refill(s), Pharmacy: [facility] [id number] Start Date: 08/18/13 Stop Date: 08/02/15 Status: CompletedTessalon Perles 100 mg oral capsule 1 cap(s), Oral, TID, X 14 days, # 42 cap(s), 0 Refill(s) Start Date: 08/18/13 Stop Date: 08/18/13 Status: CompletedTessalon Perles 100 mg oral capsule 1 cap(s), Oral, TID, # 42 cap(s), 0 Refill(s), Pharmacy: [facility] [id number] Start Date: 08/13/13 Stop Date: 08/18/13 Status: [...] pain, # 30 tab(s), 0 Refill(s), Pharmacy: [facility] [id number] Start Date: 08/13/13 Stop Date: 04/28/14 Status: [...]
[2016-11-01 14:27] VITALS: BP 121/66
== END 2016-11-01 14:39 | disposition home or self-care (01) ==
LOC: ER 13:07
DX: J01.10 Acute frontal sinusitis, unspecified (principal)